=== PATIENT | female | born 1930 | race Caucasian/White ===

== ENCOUNTER → 2016-09-29 | Outpatient (CLI) | payer OTHER ==
[~2016-09-29] MED LIST: ACET-1256 PO; CALC500C70 PO; CEFU1TAB35 PO; CHOL1000 PO; IBAN150T PO; LEVO50TA6 PO; MULT-506 PO; PSEU30TA20 PO; RALO60TA12 PO
[2016-09-29 11:07] LABS: BASO % 0.4 %; BASO ABS # 0.03 K/uL (0-0.2); COMPLETE YES; EOS % 0.8 %; HEMATOCRIT 35.7 % (37-47); IG% 0.1 %; LYMPH % 27.1 %; LYMPH ABS # 2.08 K/uL (1.2-3.4); MEAN CELL VOLUME 92.2 fL (80-100); MEAN CORPUSCULAR HEMOGLOBIN 29.5 pg (25-34); MEAN CORPUSCULAR HGB CONC 31.9 g/dl (32-36); MEAN PLATELET VOLUME 8.1 fL (7.4-10.4); MONO % 9.1 %; NEUT % 62.5 %; PLATELET COUNT 343 K/uL (130-400); RED BLOOD COUNT 3.87 M/uL (4.2-5.4); WHITE BLOOD COUNT 7.68 K/uL (4.8-10.8)
--- NOTE | 2016-09-29 11:34 | DIAGNOSTIC IMAGING REPORT ---
ULTRASOUND OF THE CAROTID ARTERIES CLINICAL HISTORY: Right carotid bruit COMPARISON STUDY: None. TECHNIQUE: Real-time, grayscale, and color Doppler sonography of the carotid arteries was performed. Imaging reviewed in the transverse and longitudinal planes. NASCET criteria was utilized for stenosis calcification. FINDINGS: There is mild to moderate atherosclerotic plaque present . The peak systolic velocity within the right internal carotid artery is 100 cm/sec. The systolic velocity ratio of right internal to common carotid artery is 1.4. The peak systolic velocity within the left internal carotid artery is 78 cm/sec. The systolic velocity ratio left internal to common carotid artery is 0.9. Antegrade flow is seen in the vertebral arteries. The external carotid arteries are patent. Blood pressure in the right arm measured 137 mm/Hg. Blood pressure in the left arm measured 152 mm/Hg. IMPRESSION: Mild to moderate atheromatous changes. No evidence of incidentally significant carotid stenosis. Electronically signed by: Isacc Ag M.D. 09/29/2016 11:32 AM Dictated Date/Time: 09/29/2016 11:31 AM
[2016-09-29 11:42] LABS: ALT/SGPT 18 U/L (12-78); AST/SGOT 16 U/L (15-37); BLOOD UREA NITROGEN 22 mg/dl (7-18); BUN/CREATININE RATIO 24.4 (10-20); CALCIUM 8.8 mg/dl (8.5-10.1); CARBON DIOXIDE 23 mmol/L (21-32); CHLORIDE 113 mmol/L (98-107); CHOLESTEROL 145 mg/dl (0-200); GLUCOSE 81 mg/dl (70-99); POTASSIUM 3.4 mmol/L (3.5-5.1); SODIUM 141 mmol/L (136-145); TRIGLYCERIDES 122 mg/dl (0-150); VERY LOW DENSITY LIPOPROT CALC 24 mg/dl
[2016-09-29 11:53] LABS: ALB/GLOB RATIO 1.1 (0.9-2); ALKALINE PHOSPHATASE 45 U/L (45-117); CHOLESTEROL/HDL RATIO 4.5; HDL CHOLESTEROL 32 mg/dl; LDL CHOLESTEROL CALCULATED 89 mg/dl
== END | disposition home or self-care (01) ==
LOC: C.ULTR 09:52
PROVIDERS: ATTEND Family Medicine
DX: R63.4 Abnormal weight loss (principal); R53.83 Other fatigue; I10 Essential (primary) hypertension; E78.2 Mixed hyperlipidemia; E03.9 Hypothyroidism, unspecified; I65.23 Occlusion and stenosis of bilateral carotid arteries

== ENCOUNTER → 2016-12-22 | Outpatient (CLI) | payer OTHER ==
--- NOTE | 2016-12-22 14:49 | DIAGNOSTIC IMAGING REPORT ---
BILATERAL CAROTID DOPPLER STUDY HISTORY: Dizziness, subclavian STEAL COMPARISON: Carotid Doppler 09/29/2016. TECHNIQUE: Real-time, grayscale, and color Doppler sonography of the carotid arteries was performed. Imaging reviewed in the transverse and longitudinal planes. All measurements were calculated based on NASCET criteria. FINDINGS: Antegrade flow is seen in the bilateral vertebral arteries. The brachial pressures are hemodynamically similar. Mild calcified plaque within the bilateral carotid bifurcations. The peak systolic velocity within the right ICA is 83 cm/s. The right systolic ratio is 1.4. The peak systolic velocity within the left ICA is 103 cm/s. The left systolic ratio is 1.2. IMPRESSION: No hemodynamically significant stenosis seen within the carotid arteries. Electronically signed by: Enzo Macdonald M.D. 12/22/2016 2:47 PM Dictated Date/Time: 12/22/2016 2:46 PM
== END | disposition home or self-care (01) ==
LOC: C.ULTR 13:07
PROVIDERS: ATTEND Internal Medicine Interventional Cardiology
DX: G45.8 Other transient cerebral ischemic attacks and related syndromes (principal); R42 Dizziness and giddiness; I65.23 Occlusion and stenosis of bilateral carotid arteries

== ENCOUNTER → 2016-12-26 | Outpatient (CLI) | payer OTHER ==
[2016-12-26 12:50] LABS: BLOOD UREA NITROGEN 16 mg/dl (7-18); BUN/CREATININE RATIO 17.7 (10-20); CALCIUM 8.3 mg/dl (8.5-10.1); CARBON DIOXIDE 24 mmol/L (21-32); CHLORIDE 109 mmol/L (98-107); CREATININE 0.88 mg/dl (0.60-1.20); GLUCOSE 82 mg/dl (70-99); POTASSIUM 4.1 mmol/L (3.5-5.1); SODIUM 141 mmol/L (136-145)
== END | disposition home or self-care (01) ==
LOC: C.LABBFT 09:22
PROVIDERS: ATTEND Physician Assistant
DX: R06.02 Shortness of breath (principal)

== ENCOUNTER → 2016-12-29 | Outpatient (CLI) | payer OTHER ==
[2016-12-29 15:43] LABS: MEAN CELL VOLUME 92.9 fL (80-100); MEAN CORPUSCULAR HEMOGLOBIN 29.2 pg (25-34); MEAN CORPUSCULAR HGB CONC 31.5 g/dl (32-36); MEAN PLATELET VOLUME 8.5 fL (7.4-10.4); PLATELET COUNT 383 K/uL (130-400); RED BLOOD COUNT 3.66 M/uL (4.2-5.4); WHITE BLOOD COUNT 9.31 K/uL (4.8-10.8)
[2016-12-29 15:56] LABS: PROTHROMBIN TIME (PATIENT) 10.2 SECONDS (9.0-12.0)
== END | disposition home or self-care (01) ==
LOC: C.LAB1850 14:35
PROVIDERS: ATTEND Physician Assistant
DX: I35.0 Nonrheumatic aortic (valve) stenosis (principal)

== ENCOUNTER → 2017-02-20 | Outpatient (CLI) | payer OTHER ==
[~2017-02-20] MED LIST changes: -ACET-1256 PO; +ASPEC81 PO; +ATOR-22 PO; -CALC500C70 PO; -CEFU1TAB35 PO; +FURO-85 PO; +IBUP200C14; +IMDSR30 PO; -MULT-506 PO; +POTA10CA28 PO; -RALO60TA12 PO; +RALO60TA30 PO; +SERT25TA PO
[2017-02-20 17:42] LABS: MEAN CELL VOLUME 95.4 fL (80-100); MEAN CORPUSCULAR HEMOGLOBIN 30.2 pg (25-34); MEAN CORPUSCULAR HGB CONC 31.6 g/dl (32-36); MEAN PLATELET VOLUME 8.5 fL (7.4-10.4); PLATELET COUNT 358 K/uL (130-400); RED BLOOD COUNT 3.25 M/uL (4.2-5.4); WHITE BLOOD COUNT 9.52 K/uL (4.8-10.8)
[2017-02-20 17:51] LABS: BLOOD UREA NITROGEN 24 mg/dl (7-18); BUN/CREATININE RATIO 26.8 (10-20); CALCIUM 8.4 mg/dl (8.5-10.1); CARBON DIOXIDE 26 mmol/L (21-32); CHLORIDE 107 mmol/L (98-107); CREATININE 0.89 mg/dl (0.60-1.20); GLUCOSE 83 mg/dl (70-99); POTASSIUM 4.1 mmol/L (3.5-5.1); SODIUM 139 mmol/L (136-145)
[2017-02-20 17:54] LABS: ALT/SGPT 15 U/L (12-78); AST/SGOT 15 U/L (15-37)
== END | disposition home or self-care (01) ==
LOC: C.LABBFT 11:26
PROVIDERS: ATTEND Family Medicine
DX: D64.9 Anemia, unspecified (principal); E87.6 Hypokalemia; I11.0 Hypertensive heart disease with heart failure; I50.9 Heart failure, unspecified; E03.9 Hypothyroidism, unspecified; I25.10 Atherosclerotic heart disease of native coronary artery without angina pectoris

== ENCOUNTER → 2017-03-03 | Outpatient (CLI) | payer OTHER ==
[~2017-03-03] MED LIST changes: +ASPCH81X PO; -ASPEC81 PO; +ASPI-320 PO; +ATOR-54 PO; +CHOL20005 PO; +ISR/30 PO; +OPTIRAY 320 IV PRN; +PSEU30TA64 PO
--- NOTE | 2017-03-03 12:43 | DIAGNOSTIC IMAGING REPORT ---
ABDOMEN AND PELVIS CT WITH IV AND ORAL CONTRAST CT DOSE: 254.88 mGy.cm HISTORY: Acute generalized abdominal pain, most pronounced in the left with weight loss. WEIGHT LOSS,AB PAIN TECHNIQUE: Multiaxial CT images of the abdomen and pelvis were performed following the use of intravenous and oral contrast. A dose lowering technique was utilized adhering to the principles of ALARA. COMPARISON STUDY: None. FINDINGS: Lung bases are generally clear. There is no pneumatosis or pneumoperitoneum identified. Extensive coronary arterial calcifications are noted in addition to calcifications of the mitral and aortic annuli. No pericardial effusion. The liver, gallbladder and adrenal glands are within normal limits. Mild diffuse pancreatic atrophy. Low attenuating lesion of the posterior aspect spleen measures 6 x 5 mm, indeterminate however statistically benign. The spleen is mildly diminutive in size measuring 7 cm in length. Mild cortical thinning of the left kidney. No renal calculi or hydronephrosis identified. Urinary bladder is partially collapsed. Uterus appears to be surgically absent. Surgical clips are seen anterior to the urinary bladder posterior to the pubic symphysis. Moderate atherosclerosis with tortuosity of the abdominal aorta. No aneurysm or dissection identified. Nonspecific mildly prominent periportal lymph node is seen on image 113 series 3, 1.7 x 0.8 cm which is likely physiologic. No bulky retroperitoneal adenopathy. There is no bowel obstruction. There is moderate gaseous distention with moderate stool volume throughout the colon which is very tortuous. The cecum is noted within the right lower quadrant of the abdomen. The appendix is not clearly seen. No secondary signs of acute appendicitis. No ascites or significant inflammatory change throughout the abdomen or pelvis. Calcific granulomas are noted within the renal soft tissues. The bones appear osteoporotic. Levoscoliosis of the lumbar spine. 9 mm anterolisthesis L4 on L5, likely secondary to long-standing facet disease. Severe intervertebral disc space narrowing seen at T9-T10 and T10-T11 and. Mild age-indeterminate anterior wedging of T11 without retropulsion, likely chronic. IMPRESSION: 1. Mild gaseous distention of the colon is noted with moderate stool volume suggesting constipation, possibly with colonic ileus. No evidence of bowel obstruction or focal bowel wall thickening. 2. Prior hysterectomy. 3. 6 x 5 mm low attenuating lesion of the spleen is indeterminate, however statistically benign. 4. Additional findings as above. Electronically signed by: Sathya Newman M.D. 03/03/2017 12:41 PM Dictated Date/Time: 03/03/2017 12:30 PM
== END | disposition home or self-care (01) ==
LOC: C.CTS 10:07
PROVIDERS: ATTEND Family Medicine
DX: R63.4 Abnormal weight loss (principal); D64.9 Anemia, unspecified; R10.814 Left lower quadrant abdominal tenderness; Z90.710 Acquired absence of both cervix and uterus

== ENCOUNTER 2017-03-29 14:18 | Inpatient (IN) | payer OTHER ==
[~2017-03-29] VITALS: Ht 157.5 cm; Wt 55.2 kg
[~2017-03-29 14:18] MED LIST changes: -ASPIRIN 81 MG CHEW PO ONE; -NITROGLYCERIN 0.3 MG/1 TAB 100 TAB BTL SL ONE; -NITROGLYCERIN 0.4 MG SL PER TAB CHARGE ONE; -SODIUM CHLORIDE 0.9% 500ML 500 ML IV ONE
[2017-03-29] MEDS ORDERED: NITROGLYCERIN 0.4 MG SL PER TAB CHARGE SL STA (14:46)
--- NOTE | 2017-03-29 15:03 | EMERGENCY ROOM VISIT NOTE ---
History Report prepared by Austyn: Nikita Hope Under the Supervision of: Dr. Truong Avila M.D. First contact with patient: 14:37 Chief Complaint: CHEST PAIN Stated Complaint: CHEST PAIN Nursing Triage Summary: Pt arrives by litter from [facility]. Had Colonoscopy today for anemia, rectal bleeding and weight loss. Pt started to complain of chest pain post recovery. Pt reported it was a substernal pressure. They placed pt on 4L NC, gave 324 ASA at 1326, 0.4 Nitro SL at 1348. pt rating pain 2/10. Hx of heart murmur, blockage and stenosis. reports colonoscopy was clear other than Diverticultis and hemmorrhoids History of Present Illness The patient is an 86 year old female who presents to the Emergency Room with complaints of chest pressure x 2 hours. Patient's chest pressure has been ongoing for approximately 2 hours. Patient did have a recent colonoscopy which showed some diverticula and some hemorrhoids. This was not any sort of bleeding. She does complain shortness of breath which is chronic in nature. Patient does have a prior history of blood clots however this is many many years ago. Patient does take aspirin but no Plavix. Of note the patient did have a recent heart catheterization back in January with Dr. Julian Ta which showed 70% stenosis of the LAD at the midportion. They elected medical management at this time. Patient states that she did get a full dose aspirin as well as nitroglycerin. The nitroglycerin did mildly improve her pain. Patient denies any other infectious symptoms or lower extremity swelling. Patient denies any orthopnea. Source of History: patient Onset: 2 hour WALLPAPERER Position: chest Quality: pressure Modifying Factors (Relieving): other ( Nitro) Associated Symptoms: + SOB Review of Systems See HPI for pertinent positives and negatives. A total of ten systems were reviewed and were otherwise negative. Past Medical & Surgical Medical Problems: (1) Aortic stenosis (2) Arthritis (3) Benign essential HTN (4) Bladder CA (5) CAD (coronary artery disease) (6) Hypothyroidism (7) Osteoporosis (8) S/P bladder tumor removal Surgical Problems: (1) History of hysterectomy Family History Omitted due to age Social History Smoking Status: Never Smoker Alcohol Use: none Drug Use: none Marital Status: Housing Status: lives with family Occupation Status: retired Current/Historical Medications Scheduled Aspirin (Aspirin Chewable), 81 MG PO QAM Atorvastatin (Lipitor), 20 MG PO QAM Cholecalciferol (Vitamin D3), 2,000 UNITS PO QAM Furosemide (Lasix), 20 MG PO QAM Isosorbide Dinitrate (Isordil), 30 MG PO QAM Levothyroxine Sodium (Levothyroxine Sodium), 50 MCG PO QAM Potassium Chloride (Micro-K Ext Rel), 10 MEQ PO QAM Raloxifene Hcl (Evista), 60 MG PO QAM Sertraline (Zoloft), 25 MG PO QAM Scheduled PRN Pseudoephedrine Hcl (Sudafed), 30 MG PO DAILY PRN for SINUS PRESSURE Allergies Coded Allergies: No Known Allergies (Unverified , 03/29/17) Physical Exam Vital Signs Date Time Temp Pulse Resp B/P (MAP) Pulse Ox O2 Delivery O2 Flow Rate FiO2 03/29/17 16:00 62 18 127/55 97 Room Air 03/29/17 14:26 64 03/29/17 14:25 100 Nasal Cannula 3.0 03/29/17 14:25 100 Nasal Cannula 3.0 03/29/17 14:25 37.1 66 12 150/59 100 Nasal Cannula 3.0 Physical Exam GENERAL: Awake, alert, well-appearing, NAD HENT: Normocephalic, atraumatic. NC in place EYES: Normal conjunctiva. Sclera non-icteric. NECK: Supple. No nuchal rigidity. FROM. RESPIRATORY: CTAB, no rhonchi, wheezing, crackles CARDIAC: RRR, no MRG ABDOMEN: Soft, NTND, BS+ MSK: No chest wall TTP, no LE edema, no reproducible chest wall TTP NEURO: GCS 15, CN 2-12 intact, moves all 4s on command SKIN: No rash or jaundice noted. Medical Decision & Procedures ER Provider Diagnostic Interpretation: Radiology results as stated below per my review and radiologist interpretation: CHEST ONE VIEW PORTABLE HISTORY: 86 years-old Female CHEST PAIN acute atypical chest pain COMPARISON: Chest radiograph 10/01/2015, CT chest 10/13/2015 CT abdomen and pelvis 03/03/2017 TECHNIQUE: Portable AP view of the chest FINDINGS: Catheter granuloma of the right lower lobe redemonstrated. Cardiac silhouette is mildly enlarged. There is no pneumothorax, pleural effusion, overt pulmonary edema. No definite focal airspace consolidation. There are calcifications of the tracheobronchial tree. Mild convex right curvature of the lower thoracic spine. Chondrocalcinosis seen about the right shoulder. There are degenerative changes noted within the shoulders and spine. IMPRESSION: Prior granulomatous disease without acute process. The above report was generated using voice recognition software. It may contain grammatical, syntax or spelling errors. Electronically signed by: Sathya Newman M.D. 03/29/2017 3:01 PM Dictated Date/Time: 03/29/2017 2:59 PM Laboratory Results 03/29/17 15:16 Red Blood Count 3.04, Mean Corpuscular Volume 93.4, Mean Corpuscular Hemoglobin 29.6, Mean Corpuscular Hemoglobin Concent 31.7, Mean Platelet Volume 8.3, Neutrophils (%) (Auto) 54.1, Lymphocytes (%) (Auto) 33.3, Monocytes (%) (Auto) 10.7, Eosinophils (%) (Auto) 1.4, Basophils (%) (Auto) 0.4, Neutrophils # (Auto ) 3.82, Lymphocytes # (Auto) 2.36, Monocytes # (Auto) 0.76, Eosinophils # (Auto ) 0.10, Basophils # (Auto) 0.03 03/29/17 15:16 Test 03/29/17 15:16 White Blood Count 7.08 K/uL (4.8-10.8) Red Blood Count 3.04 M/uL (4.2-5.4) Hemoglobin 9.0 g/dL (12.0-16.0) Hematocrit 28.4 % (37-47) Mean Corpuscular Volume 93.4 fL (80-100) Mean Corpuscular Hemoglobin 29.6 pg (25-34) Mean Corpuscular Hemoglobin Concent 31.7 g/dl (32-36) Platelet Count 297 K/uL (130-400) Mean Platelet Volume 8.3 fL (7.4-10.4) Neutrophils (%) (Auto) 54.1 % Lymphocytes (%) (Auto) 33.3 % Monocytes (%) (Auto) 10.7 % Eosinophils (%) (Auto) 1.4 % Basophils (%) (Auto) 0.4 % Neutrophils # (Auto) 3.82 K/uL (1.4-6.5) Lymphocytes # (Auto) 2.36 K/uL (1.2-3.4) Monocytes # (Auto) 0.76 K/uL (0.11-0.59) Eosinophils # (Auto) 0.10 K/uL (0-0.5) Basophils # (Auto) 0.03 K/uL (0-0.2) RDW Standard Deviation 47.0 fL (36.4-46.3) RDW Coefficient of Variation 13.7 % (11.5-14.5) Immature Granulocyte % (Auto) 0.1 % Immature Granulocyte # (Auto) 0.01 K/uL (0.00-0.02) Prothrombin Time 10.7 SECONDS (9.0-12.0) Prothromb Time International Ratio 1.0 (0.9-1.1) Activated Partial Thromboplast Time 24.4 SECONDS (21.0-31.0) Partial Thromboplastin Ratio 0.9 Anion Gap 6.0 mmol/L (3-11) Est Creatinine Clear Calc Drug Dose 54.2 ml/min Estimated GFR () 96.3 Estimated GFR (Non- 83.1 BUN/Creatinine Ratio 21.0 (10-20) Calcium Level 7.8 mg/dl (8.5-10.1) Phosphorus Level 2.5 mg/dl (2.5-4.9) Magnesium Level 1.7 mg/dl (1.8-2.4) Total Bilirubin 0.2 mg/dl (0.2-1) Direct Bilirubin < 0.1 mg/dl (0-0.2) Aspartate Amino Transf (AST/SGOT) 13 U/L (15-37) Alanine Aminotransferase (ALT/SGPT) 14 U/L (12-78) Alkaline Phosphatase 40 U/L (45-117) Total Protein 6.0 gm/dl (6.4-8.2) Albumin 3.1 gm/dl (3.4-5.0) Lipase 207 U/L (73-393) Laboratory results reviewed by me Medications Administered Medications (Trade) Dose Ordered Sig/Cruz Route Start Time Stop Time Status Last Admin Dose Admin Nitroglycerin (Nitrostat Tab) 0.4 mg NOW STAT SL 03/29/17 14:46 03/29/17 14:48 DC 03/29/17 15:12 0.4 MG Magnesium Oxide (Mag-Ox Tab) 800 mg ONE STAT PO 03/29/17 15:55 03/29/17 16:07 DC 03/29/17 16:26 800 MG ECG Indication: chest pain Rate (beats per minute): 68 Rhythm: sinus rhythm, other (with first-degree AV block) Findings: 1st degree AV block, T-wave inversion (lead 3) Comparison ECG Date: Jan 2015; a slight progression of the T wave inversion in lead 3 but no other changes identified Change: Normal axis, TWI in lead 3 no other overt STS changes or TWI ED Course 1437: The patient was evaluated in room A10. A complete history and physical exam was performed. 1601: I discussed the case with Dr. Omkar Berrios [facility] Hospitalist, he will evaluate the patient for further treatment. Medical Decision The patient is an 86 year old female who presents to the Emergency Room with complaints of chest pressure x 2 hours. Prior records/ancillary studies reviewed. Triage Nursing notes reviewed. Additional history obtained from []. The patient's history was concerning for chest pain. Differential diagnosis: Etiologies such as cardiac ischemia, aortic dissection, pulmonary embolism, pneumonia, pneumothorax, musculoskeletal, infections, pericarditis, myocarditis , esophageal rupture, gastrointestinal, as well as others were entertained. Patient was seen and evaluated the bedside. Patient admitted complaining some mild chest pressure that was central nonradiating without any diaphoresis, nausea, vomiting. No exertional symptoms, orthopnea or infectious symptoms. Patient did have blood work, EKG, troponin, chest x-ray. Patient's EKG did show a single isolated TWI in lead 3 that is fairly unchanged from priors. No other overt changes. Patient does have first degree AV block. Of note the patient did note some mild improvement in her discomfort with nitroglycerin. She did receive full dose aspirin after her colonoscopy. Patient's chest x-ray normal. Patient's blood work did show hypomagnesemia and type of calcium you. These were repleted. Given the patient's recent cardiac catheterization with mid LAD stenosis 70% without any stents patient does have known CAD and given her chest pain she is high risk. She was given a second dose of nitroglycerin which she stated did not show much help. Given the patient's high risk chest pain, I did talk with the medicine service who agreed to further evaluate and treat the patient. Medication Reconcilliation Current Medication List: was personally reviewed by me Blood Pressure Screening Patient's blood pressure: Elevated blood pressure Blood pressure disposition: Referred to PCP Consults Time Called: 1550 Consulting Physician: Dr. Omkar JUDD Hospitalist Returned Call: 1601 I discussed the case with Dr. Omkar JUDD Hospitalist, he will evaluate the patient for further treatment. Impression Primary Impression: Chest pain Additional Impressions: Chest pressure Hypomagnesemia Hypocalcemia Scribe Attestation The scribe's documentation has been prepared under my direction and personally reviewed by me in its entirety. I confirm that the note above accurately reflects all work, treatment, procedures, and medical decision making performed by me. Departure Information Dispostion Being Evaluated By Hospitalist Referrals Kenn Driver M.D. (PCP) Patient Instructions My [facility] Problem Qualifiers Primary Impression: Chest pain Chest pain type: unspecified Qualified Codes: R07.9 - Chest pain, unspecified
[2017-03-29 15:30] LABS: BASO % 0.4 %; BASO ABS # 0.03 K/uL (0-0.2); EOS % 1.4 %; HEMATOCRIT 28.4 % (37-47); IG# 0.01 K/uL (0.00-0.02); LYMPH % 33.3 %; LYMPH ABS # 2.36 K/uL (1.2-3.4); MEAN CELL VOLUME 93.4 fL (80-100); MEAN CORPUSCULAR HEMOGLOBIN 29.6 pg (25-34); MEAN CORPUSCULAR HGB CONC 31.7 g/dl (32-36); MEAN PLATELET VOLUME 8.3 fL (7.4-10.4); MONO % 10.7 %; MONO ABS # 0.76 K/uL (0.11-0.59); NEUT % 54.1 %; NEUT ABS # 3.82 K/uL (1.4-6.5); PLATELET COUNT 297 K/uL (130-400); RED CELL DISTRIBUTION WIDTH CV 13.7 % (11.5-14.5); WHITE BLOOD COUNT 7.08 K/uL (4.8-10.8)
[2017-03-29 15:41] LABS: PTT PATIENT 24.4 SECONDS (21.0-31.0)
[2017-03-29 15:49] LABS: ALBUMIN 3.1 gm/dl (3.4-5.0); ALT/SGPT 14 U/L (12-78); AST/SGOT 13 U/L (15-37); BLOOD UREA NITROGEN 13 mg/dl (7-18); CALCIUM 7.8 mg/dl (8.5-10.1); CARBON DIOXIDE 26 mmol/L (21-32); GLUCOSE 85 mg/dl (70-99); LIPASE 207 U/L (73-393); POTASSIUM 3.7 mmol/L (3.5-5.1); SODIUM 140 mmol/L (136-145)
[2017-03-29 15:52] LABS: ALKALINE PHOSPHATASE 40 U/L (45-117); PHOSPHORUS 2.5 mg/dl (2.5-4.9)
[2017-03-29] MEDS ORDERED: CALCIUM GLUCONATE 10% 10 ML VIAL IV STA (15:52)
[2017-03-29] MEDS ORDERED: MAGNESIUM OXIDE 400 MG TAB PO STA (15:55)
[2017-03-29] MEDS ORDERED: MAGNESIUM HYDROXIDE SUSP 30 ML UDC PO PRN (16:15)
[2017-03-29] MEDS ORDERED: POLYETHYLENE (MIRALAX) 17 GM PACK PO PRN (16:15)
[2017-03-29] MEDS ORDERED: ONDANSETRON INJ 2 MG/ML 2 ML VIAL IV PRN (16:15)
[2017-03-29] MEDS ORDERED: ACETAMINOPHEN 325 MG TAB PO PRN (16:15)
[2017-03-29] MEDS ORDERED: CALCIUM GLUCONATE 10% 1,000 MG in SODIUM CHLORIDE 0.9% 50ML 50 ML IV SCH (16:15)
[2017-03-29] MEDS ORDERED: PSEUDOEPHEDRINE HCL 30 MG TAB PO PRN (16:15)
--- NOTE | 2017-03-29 16:56 | History and Physical ---
History & Physical Date & Time of Service: Mar 29, 2017 at 16:31 Chief Complaint: Chest Pain Primary Care Physician: Kenn Driver M.D. History of Present Illness Source: patient, family This is an 86 yo F with PMHx of HTN, CAD with 70 % stenosis to the LAD, aortic stenosis/insufficiency, hypothyroidism, anemia of chronic disease, osteoporosis , who presents status post colonoscopy completed this morning by Dr. solorio. At the end of the procedure the patient noted to have substernal pressure, and therefore was sent over the ER for evaluation. At this point in time she denies any chest pain, shortness of breath, lightheadedness, headache and reports she is only mildly bloated secondary to colonoscopy. She has reproducible pain which is only rated as a 1-2 out of 10 when I press over her left anterior chest. She reports that she is fairly physically active at home, ambulates without any assistive devices and does not require supplemental O2. Here in the ER an EKG was completed showing T-wave inversions in leads 3, however is comparable to previous EKG. Initial troponin is negative, Mag= 1.7 and has been replaced via PO meds in the ER. Past Medical/Surgical History Medical Problems: (1) Aortic stenosis (2) Arthritis (3) Benign essential HTN (4) Bladder CA (5) CAD (coronary artery disease) (6) Hypothyroidism (7) Osteoporosis Surgical Problems: (1) History of hysterectomy (2) S/P bladder tumor removal Family History Omitted due to age Social History Smoking Status: Never Smoker Smokeless Tobacco Use: No Alcohol Use: none Drug Use: none Marital Status: Housing status: lives with family Occupational Status: retired Allergies Coded Allergies: No Known Allergies (Unverified , 03/29/17) Home Medications Scheduled Aspirin (Aspirin Chewable), 81 MG PO QAM Atorvastatin (Lipitor), 20 MG PO QAM Cholecalciferol (Vitamin D3), 2,000 UNITS PO QAM Furosemide (Lasix), 20 MG PO QAM Isosorbide Dinitrate (Isordil), 30 MG PO QAM Levothyroxine Sodium (Levothyroxine Sodium), 50 MCG PO QAM Potassium Chloride (Micro-K Ext Rel), 10 MEQ PO QAM Raloxifene Hcl (Evista), 60 MG PO QAM Sertraline (Zoloft), 25 MG PO QAM Scheduled PRN Pseudoephedrine Hcl (Sudafed), 30 MG PO DAILY PRN for SINUS PRESSURE Review of Systems Constitutional: No fever, sweats or chills, + weight loss of 10 pounds since December Eyes: No diplopia, no worsening or blurred vision ENT: normal hearing, no trouble swallowing Respiratory: No cough, sputum, dyspnea at rest or on exertion Cardiovascular: See history of present illness Abdomen: No pain, nausea, vomiting, diarrhea or constipation Musculoskeletal: No joint pain, calf pain, swelling Neurologic: No weakness, numbness/tingling, or balance problems Psychiatric: No anxiety or depression Skin: No rash or itch Physical Exam Vital Signs Date Time Temp Pulse Resp B/P (MAP) Pulse Ox O2 Delivery O2 Flow Rate FiO2 03/29/17 16:00 62 18 127/55 97 Room Air 03/29/17 14:26 64 03/29/17 14:25 100 Nasal Cannula 3.0 03/29/17 14:25 100 Nasal Cannula 3.0 03/29/17 14:25 37.1 66 12 150/59 100 Nasal Cannula 3.0 General: awake, alert, no apparent distress, + thin and frail Head: Normocephalic, atraumatic ENT: PERRL, EOMI, no pharyngeal exudate, mucous membranes moist Chest: Clear to auscultation, on room air, no adventitious breath sounds Cardiac: + Tenderness with palpation over the left chest wall, Regular rate and rhythm, loud +systolic murmur grade III/, no JVD, normal peripheral pulses, good capillary refill Abdominal: NABS x 4 quadrants, soft, nontender to palpation, no rebound, guarding or tenderness Extremities: Normal inspection, no peripheral edema or erythema, calfs nontender to palpation Psych: Normal mood and affect Neuro: AAO x 3, strength intact bilaterally and related 5/5, no motor deficits, speech is clear, no peripheral sensory deficits Diagnostics Laboratory Results Results Past 24 Hours Test 03/29/17 15:16 Range/Units White Blood Count 7.08 4.8-10.8 K/uL Red Blood Count 3.04 4.2-5.4 M/uL Hemoglobin 9.0 12.0-16.0 g/dL Hematocrit 28.4 37-47 % Mean Corpuscular Volume 93.4 80-100 fL Mean Corpuscular Hemoglobin 29.6 25-34 pg Mean Corpuscular Hemoglobin Concent 31.7 32-36 g/dl Platelet Count 297 130-400 K/uL Mean Platelet Volume 8.3 7.4-10.4 fL Neutrophils (%) (Auto) 54.1 % Lymphocytes (%) (Auto) 33.3 % Monocytes (%) (Auto) 10.7 % Eosinophils (%) (Auto) 1.4 % Basophils (%) (Auto) 0.4 % Neutrophils # (Auto) 3.82 1.4-6.5 K/uL Lymphocytes # (Auto) 2.36 1.2-3.4 K/uL Monocytes # (Auto) 0.76 0.11-0.59 K/uL Eosinophils # (Auto) 0.10 0-0.5 K/uL Basophils # (Auto) 0.03 0-0.2 K/uL RDW Standard Deviation 47.0 36.4-46.3 fL RDW Coefficient of Variation 13.7 11.5-14.5 % Immature Granulocyte % (Auto) 0.1 % Immature Granulocyte # (Auto) 0.01 0.00-0.02 K/uL Prothrombin Time 10.7 9.0-12.0 SECONDS Prothromb Time International Ratio 1.0 0.9-1.1 Activated Partial Thromboplast Time 24.4 21.0-31.0 SECONDS Partial Thromboplastin Ratio 0.9 Sodium Level 140 136-145 mmol/L Potassium Level 3.7 3.5-5.1 mmol/L Chloride Level 108 98-107 mmol/L Carbon Dioxide Level 26 21-32 mmol/L Anion Gap 6.0 3-11 mmol/L Blood Urea Nitrogen 13 7-18 mg/dl Creatinine 0.60 0.60-1.20 mg/dl Est Creatinine Clear Calc Drug Dose 54.2 ml/min Estimated GFR () 96.3 Estimated GFR (Non- 83.1 BUN/Creatinine Ratio 21.0 10-20 Random Glucose 85 70-99 mg/dl Calcium Level 7.8 8.5-10.1 mg/dl Phosphorus Level 2.5 2.5-4.9 mg/dl Magnesium Level 1.7 1.8-2.4 mg/dl Total Bilirubin 0.2 0.2-1 mg/dl Direct Bilirubin < 0.1 0-0.2 mg/dl Aspartate Amino Transf (AST/SGOT) 13 15-37 U/L Alanine Aminotransferase (ALT/SGPT) 14 12-78 U/L Alkaline Phosphatase 40 45-117 U/L Troponin I < 0.015 0-0.045 ng/ml Total Protein 6.0 6.4-8.2 gm/dl Albumin 3.1 3.4-5.0 gm/dl Lipase 207 73-393 U/L Diagnostic Radiology CHEST ONE VIEW PORTABLE HISTORY: 86 years-old Female CHEST PAIN acute atypical chest pain COMPARISON: Chest radiograph 10/01/2015, CT chest 10/13/2015 CT abdomen and pelvis 03/03/2017 TECHNIQUE: Portable AP view of the chest FINDINGS: Catheter granuloma of the right lower lobe redemonstrated. Cardiac silhouette is mildly enlarged. There is no pneumothorax, pleural effusion, overt pulmonary edema. No definite focal airspace consolidation. There are calcifications of the tracheobronchial tree. Mild convex right curvature of the lower thoracic spine. Chondrocalcinosis seen about the right shoulder. There are degenerative changes noted within the shoulders and spine. IMPRESSION: Prior granulomatous disease without acute process. The above report was generated using voice recognition software. It may contain grammatical, syntax or spelling errors. Electronically signed by: Sathya Newman M.D. 03/29/2017 3:01 PM Dictated Date/Time: 03/29/2017 2:59 PM The status of this report is Signed. Impression Assessment and Plan This is an 86 yo F with PMHx of HTN, CAD with 70 % stenosis to the LAD, aortic stenosis/insufficiency, hypothyroidism, anemia of chronic disease, osteoporosis , who presents status post colonoscopy completed this morning by Dr. solorio. At the end of the procedure the patient noted to have substernal pressure, and therefore was sent over the ER for evaluation. Chest pressure CAD witih 70% stenosis to the LAD completed 01/13/17 HTN HLD Aortic stenosis, aortic regurgitation, mitral regurg - Admit to telemetry for observation s/p colonoscopy - Initial troponin was negative, will trend 2 more sets - Last echocardiogram done in January, no need to repeat at this time, last carotid dopper on 12/22/16 without hemodynamically significant stenosis - no evidence of CHF per cardiology outpatient - Patient reports she is currently on medical management for CAD with stenosis and denies wants for invasive procedures or heroic measures. - Continue Imdur 30 mg daily, aspirin 81 mg daily, atorvastatin 20 mg daily - Continue Lasix 20 mg daily for lower extremity edema - which is well controlled Hypomagnesemia - Mag= 1.7, replaced via PO meds. Follow PRP Anemia of chronic disease - Colonoscopy completed today by Dr. solorio, only showing small mouth diverticula in the sigmoid colon, internal and external nonbleeding hemorrhoids. - Continue vitamins, patient cannot tolerate iron supplementation due to constipation iron supplementation History of bladder tumor s/p removal -stable Osteoporosis - Continue vitamin D supplementation Hypothyroidism Continue Synthroid 50 mcg daily DVT ppx: teds, scds, ambulatory CODE STATUS: DNR Disposition: Patient from home, lives with i personally examined pt and verified all martinez points karie Vasquez PAC CP after endo - better now. known CAD and aortic valve disease vitals noted nad breathing unlabored CP - likely GI. has CAD currently under med management. r/o ACS w enzymes, if negative then home and cardiology f/u Level of Care Telemetry Advanced Directives Existing Advance Directive: Yes Existing Living Will: Yes Existing Power of Senior Mechanical Design Engineer: Yes Resuscitation Status DO NOT RESUSCITATE VTE Prophylaxis VTE Risk Assessment Done? Y/N: Yes Risk Level: Moderate Given or contraindicated: T.E.D. Stockings, SCD's
[2017-03-29 18:48] VITALS: BP 144/61; PULSE 70; TEMP 36.9; O2SAT 96; Ht 157.5 cm; Wt 55.2 kg
[2017-03-29 19:45] VITALS: BP 120/63; PULSE 69; TEMP 37.2; O2SAT 93
[2017-03-29] MEDS: HEPARIN SOD 5000 UNIT/0.5 ML CARP SQ SCH (21:12)
[2017-03-29 23:06] VITALS: BP 118/67; PULSE 67; TEMP 36.6; O2SAT 96
[2017-03-30 03:52] VITALS: BP 105/59; PULSE 57; TEMP 36.6; O2SAT 96
[2017-03-30 05:03] LABS: BASO % 0.5 %; BASO ABS # 0.03 K/uL (0-0.2); EOS % 1.9 %; EOS ABS # 0.11 K/uL (0-0.5); HEMATOCRIT 28.2 % (37-47); HEMOGLOBIN 8.9 g/dL (12.0-16.0); IG# 0.02 K/uL (0.00-0.02); LYMPH % 34.6 %; LYMPH ABS # 1.97 K/uL (1.2-3.4); MEAN CELL VOLUME 94.6 fL (80-100); MEAN CORPUSCULAR HEMOGLOBIN 29.9 pg (25-34); MEAN CORPUSCULAR HGB CONC 31.6 g/dl (32-36); MEAN PLATELET VOLUME 8.3 fL (7.4-10.4); MONO % 11.2 %; MONO ABS # 0.64 K/uL (0.11-0.59); NEUT % 51.4 %; NEUT ABS # 2.93 K/uL (1.4-6.5); PLATELET COUNT 281 K/uL (130-400); RED CELL DISTRIBUTION WIDTH CV 13.6 % (11.5-14.5); RED CELL DISTRIBUTION WIDTH SD 46.9 fL (36.4-46.3)
[2017-03-30 05:19] LABS: CALCIUM 8.3 mg/dl (8.5-10.1); CREATININE 0.6 mg/dl (0.60-1.20); POTASSIUM 3.6 mmol/L (3.5-5.1)
[2017-03-30] MEDS ORDERED: LEVOTHYROXINE 50 MCG TAB PO SCH (06:00)
[2017-03-30 08:02] VITALS: BP 136/69; PULSE 54; TEMP 36.7; O2SAT 96
[2017-03-30] MEDS: HEPARIN SOD 5000 UNIT/0.5 ML CARP SQ SCH (08:20)
[2017-03-30] MEDS ORDERED: ISOSORBIDE MONONITRATE 30 MG TABCR PO SCH ×2 (09:00)
[2017-03-30] MEDS ORDERED: RALOXIFENE 60 MG TAB PO SCH (09:00)
[2017-03-30] MEDS ORDERED: ATORVASTATIN 20 MG TAB PO SCH (09:00)
[2017-03-30] MEDS ORDERED: CHOLECALCIFEROL 1000 INTER.UNIT TAB PO SCH (09:00)
[2017-03-30] MEDS ORDERED: ASPIRIN 81 MG ECTAB PO SCH (09:00)
[2017-03-30] MEDS ORDERED: SERTRALINE HCL 50 MG TAB PO SCH (09:00)
[2017-03-30] MEDS ORDERED: POTASSIUM CHLORIDE 10 MEQ TABCR PO SCH (09:00)
[2017-03-30] MEDS ORDERED: FUROSEMIDE 20 MG TAB PO SCH (09:00)
--- NOTE | 2017-03-30 09:47 | Discharge Instructions ---
Discharge Instructions Date of Service Mar 30, 2017. Admission Reason for Admission: Chest Pain Discharge Discharge Diagnosis / Problem: Chest Pain Discharge Goals Goal(s): Improve function, Increase independence Activity Recommendations Activity Limitations: resume your previous activity . Instructions / Follow-Up Instructions / Follow-Up Chest Pain: - You were monitored in the hospital and your cardiac enzymes obtained and negative. This does not appear to be an acute cardiac event. - This was likely some GI interference after having a colonoscopy, as well, this could have been aggravated from anesthesia - The reproducible pain in your upper chest appears that there was a musculoskeletal component and this could have been from the way you get positioned during a colonoscopy. - Continue your medical management for your heart disease and follow-up with your steel fixer for ongoing monitoring Reason to Return: - Please return if you develop further chest pain or get short of breath Please follow up with Dr. Kenn Driver on Monday, April 05, 2017 at 1:15pm. *If you need to reschedule this appointment please call the office at . Current Hospital Diet Patient's current hospital diet: AHA Diet (Heart Healthy) Discharge Diet Recommended Diet: AHA Diet (Heart Healthy) Pending Studies Studies pending at discharge: no Medical Emergencies . Who to Call and When: Medical Emergencies: If at any time you feel your situation is an emergency, please call 911 immediately. . Non-Emergent Contact Non-Emergency issues call your: Primary Care Provider Call Non-Emergent contact if: you have a fever, your pain is concerning you, you have any medication questions . . "Provider Documentation" section prepared by Candelaria Hazel. . VTE Core Measure Inpt VTE Proph given/why not?: Sam Tony, SCD's
[2017-03-30 11:10] VITALS: BP 118/71; PULSE 66; O2SAT 98
[2017-03-30 11:30] VITALS: BP 129/72; PULSE 81; TEMP 37.1; O2SAT 96
[2017-03-30 13:33] VITALS: BP 129/72; PULSE 81; TEMP 37.1; O2SAT 96
--- NOTE | 2017-03-30 14:35 | Discharge Summary ---
Discharge Summary Date of Service Mar 30, 2017. Discharge Summary Admission Date: Mar 29, 2017 at 16:09 Discharge Date: Mar 30, 2017 Discharge Disposition: Home Principal Diagnosis: Chest Pain Problems/Secondary Diagnoses: Medical Problems: (1) Aortic stenosis (2) Arthritis (3) Benign essential HTN (4) Bladder CA (5) CAD (coronary artery disease) (6) Hypothyroidism (7) Osteoporosis (8) S/P bladder tumor removal Surgical Problems: (1) History of hysterectomy Procedures: CHEST ONE VIEW PORTABLE FINDINGS: Catheter granuloma of the right lower lobe redemonstrated. Cardiac silhouette is mildly enlarged. There is no pneumothorax, pleural effusion, overt pulmonary edema. No definite focal airspace consolidation. There are calcifications of the tracheobronchial tree. Mild convex right curvature of the lower thoracic spine. Chondrocalcinosis seen about the right shoulder. There are degenerative changes noted within the shoulders and spine. IMPRESSION: Prior granulomatous disease without acute process. Consultations: 1. PT/OT Medication Reconciliation Continued Medications: Aspirin (Aspirin Chewable) 81 Mg Chew 81 MG PO QAM Atorvastatin (Lipitor) 20 Mg Tab 20 MG PO QAM, TAB Cholecalciferol (Vitamin D3) 2,000 Unit Tab 2000 UNITS PO QAM Furosemide (Lasix) 20 Mg Tab 20 MG PO QAM Isosorbide Dinitrate (Isordil) 30 Mg Tab 30 MG PO QAM, TAB Levothyroxine Sodium (Levothyroxine Sodium) 50 Mcg Tab 50 MCG PO QAM Potassium Chloride (Micro-K Ext Rel) 10 Meq Capcr 10 MEQ PO QAM, CAP Pseudoephedrine Hcl (Sudafed) 30 Mg Tab 30 MG PO DAILY PRN for SINUS PRESSURE, TAB Raloxifene Hcl (Evista) 60 Mg Tab 60 MG PO QAM, TAB Sertraline (Zoloft) 25 Mg Tab 25 MG PO QAM, TAB Discharge Exam Review of Systems: Constitutional: No fever, No chills Respiratory: No cough, No shortness of breath Cardiovascular: No chest pain, No palpitations Abdomen: No pain, No nausea, No vomiting, No diarrhea, No constipation Musculoskeletal: No swelling, No calf pain Genitourinary - Female: No dysuria Hematologic / Lymphatic: No abnormal bleeding/bruising Physical Exam: General Appearance: WD/WN, no apparent distress Eyes: sclerae normal ENT: hearing grossly normal Neck: supple, no JVD, trachea midline Respiratory/Chest: lungs clear, normal breath sounds, no respiratory distress, no accessory muscle use, + pertinent finding (No reproducible CP of the anterior chest wall) Cardiovascular: regular rate, rhythm, + systolic murmur Abdomen / GI: normal bowel sounds, non tender, soft Extremities: no pedal edema Neurologic/Psychiatric: alert, oriented x 3 Skin: normal color, warm/dry Hospital Course ADMISSION: This is an 86 yo F with PMHx of HTN, CAD with 70 % stenosis to the LAD, aortic stenosis/insufficiency, hypothyroidism, anemia of chronic disease, osteoporosis, who presents status post colonoscopy completed this morning by Dr. solorio. At the end of the procedure the patient noted to have substernal pressure, and therefore was sent over the ER for evaluation. At this point in time she denies any chest pain, shortness of breath, lightheadedness, headache and reports she is only mildly bloated secondary to colonoscopy. She has reproducible pain which is only rated as a 1-2 out of 10 when I press over her left anterior chest. She reports that she is fairly physically active at home, ambulates without any assistive devices and does not require supplemental O2. Here in the ER an EKG was completed showing T-wave inversions in leads 3, however is comparable to previous EKG. Initial troponin is negative, Mag= 1.7 and has been replaced via PO meds in the ER. HOSPITAL COURSE: Ms. Adams was admitted due to CP following Colonoscopy that likely has a GI component given anesthesia. Also had a reproducible component that is likely due to positioning during colonoscopy Chest Pain/Pressure: GI vs Musculoskeletal - Troponins obtained and remained negative during admission; chest pressure and reproducible L sided pain have been completely resolved - Telemetry monitoring revealed NSR with one episode of largely sinus tach with PACs but with a lot of artifact. This was for only a few beats and spontaneously resolved - Does have known CAD with 70% stenosis of LAD and has opted for medical management - Home medications will be continued as previously prescribed as no adjustments were made Anemia of Chronic Disease: STABLE - Colonoscopy did not reveal an explanation for her anemia PA Physician Supervision Note: I interviewed and examined the patient. Discussed with Candelaria Hazel PAC and agree with findings and plan as documented in the note. Any exceptions or clarifications are listed here: None This patient was observed overnight after developing chest pain after a colonoscopy. She does have a history of aortic valve disease and coronary artery disease however she had no recurrent pain enzyme trend her EKG changes Her vital signs are stable she seen in the presence of her family her heart is regular with a loud systolic murmur her lungs are clear her abdomen is benign Chest pain postoperatively which is resolved patient will return to home resuming her home medications and following up with her outpatient physician Documented By: Yevgeniy Gao Total Time Spent: Greater than 30 minutes This includes examination of the patient, discharge planning, medication reconciliation, and communication with other providers. Discharge Instructions Please refer to the electronic Patient Visit Report (Discharge Instructions) for additional information. Additional Copies To Kenn Driver M.D.
== END 2017-03-30 14:17 | disposition home or self-care (01) | DRG 313 ==
LOC: C.EDA 14:18 → EDSEX 14:18 → EDBD 14:18 → C.2T 16:09 → ENRESERV 16:19
PROVIDERS: ADMIT Family Medicine; ATTEND Internal Medicine
DX: R07.9 Chest pain, unspecified (principal); E83.42 Hypomagnesemia; E83.51 Hypocalcemia; I08.0 Rheumatic disorders of both mitral and aortic valves; D63.8 Anemia in other chronic diseases classified elsewhere; R00.0 Tachycardia, unspecified; I49.1 Atrial premature depolarization; R06.02 Shortness of breath; I44.0 Atrioventricular block, first degree; I25.10 Atherosclerotic heart disease of native coronary artery without angina pectoris; I10 Essential (primary) hypertension; E03.9 Hypothyroidism, unspecified; M81.0 Age-related osteoporosis without current pathological fracture; Z66 Do not resuscitate; Z79.82 Long term (current) use of aspirin; Z79.810 Long term (current) use of selective estrogen receptor modulators (SERMs); Z79.899 Other long term (current) drug therapy

== ENCOUNTER → 2017-03-29 | Day surgery (SDC) | payer OTHER ==
[2017-03-21 11:02] VITALS: Ht 157.5 cm; Wt 56.8 kg
[~2017-03-29] VITALS: Ht 157.5 cm; Wt 56.8 kg
[~2017-03-29] MED LIST changes: -ASPI-320 PO; +ASPIRIN 81 MG CHEW PO ONE; -ATOR-22 PO; -CHOL1000 PO; -IBAN150T PO; -IBUP200C14; -IMDSR30 PO; +NITROGLYCERIN 0.3 MG/1 TAB 100 TAB BTL SL ONE; +NITROGLYCERIN 0.4 MG SL PER TAB CHARGE ONE; -OPTIRAY 320 IV PRN; -PSEU30TA20 PO; +SODIUM CHLORIDE 0.9% 500ML 500 ML IV ONE
[2017-03-29 11:13] VITALS: TEMP 36.9
--- NOTE | 2017-03-29 12:12 | Endo History and Physical ---
History & Physical Date of Service: Mar 29, 2017. Chief Complaint: Anemia, Rectal bleeding, wt loss Referring Physician: Kenn Driver History of Present Illness 86 yo CF who presents for colonoscopy secondary to anemia, rectal bleeding and weight loss. Past Medical History Osteoporosis, Arthritis, Thyroid Disease Past Surgical History Hx Cardiac Surgery: Yes (HEART CATH-NO STENTS) Hx Internal Defibrillator: No Hx Pacemaker: No Hx Abdominal Surgery: Yes (HYSTERECTOMY, GASTRIC BYPASS, D&E) Hx of Implantable Prosthesis: No Hx Post-Op Nausea and Vomiting: No Hx Cancer Surgery: Yes (BLADDER TUMOR REMOVED) Hx Thoracic Surgery: No Hx Orthopedic: No Hx Urinary Tract Surgery: Yes (BLADDER TACK) Family History None Social History Smoking Status: Never Smoker Hx Substance Use: No Hx Alcohol Use: No Allergies Coded Allergies: No Known Allergies (Unverified , 03/21/17) Current Medications Reported Home Medications Medications Dose Route/Sig Max Daily Dose Days Date Category Vitamin D3 (Cholecalciferol) 2,000 Unit Tab 1 Tab PO QAM 03/21/17 Reported Sudafed (Pseudoephedrine Hcl) 30 Mg Tab 30 Mg PO DAILY PRN 03/21/17 Reported Zoloft (Sertraline HCl) 25 Mg Tab 25 Mg PO QAM 03/21/17 Reported Levothyroxine Sodium 50 Mcg Tab 1 Tab PO QAM 03/21/17 Reported Isordil (Isosorbide Dinitrate) 30 Mg Tab 30 Mg PO QAM 03/21/17 Reported Lipitor (Atorvastatin) 20 Mg Tab 20 Mg PO QAM 03/21/17 Reported Aspirin Chewable (Aspirin) 81 Mg Chew 81 Mg PO QAM 03/21/17 Reported Micro-K Ext Rel (Potassium Chloride) 10 Meq Capcr 10 Meq PO QAM 01/13/17 Reported Lasix (Furosemide) 20 Mg Tab 1 Tab PO QAM 90 01/13/17 Reported Evista (Raloxifene Hcl) 60 Mg Tab 60 Mg PO QAM 01/16/15 Reported Vital Signs Weight (Kilograms): 56.82 Height (Feet): 5 Height (Inches): 2 Date Time Temp Pulse Resp B/P (MAP) Pulse Ox O2 Delivery O2 Flow Rate FiO2 03/29/17 11:13 36.9 75 24 146/61 (89) 96 Room Air Physical Exam General Appearance: WD/WN, no apparent distress Respiratory/Chest: Auscultation: breath sounds normal Cardiovascular: Heart Auscultation: RRR Abdomen: Bowel Sounds: normal Inspection & Palpation: soft, non-distended, no tenderness, guarding & rebound Assessment and Plan Assessment: 86 yo CF who presents for colonoscopy secondary to anemia, rectal bleeding and weight loss. Plan: Proceed with colonoscopy.
--- NOTE | 2017-03-29 12:48 | GI REPORT ---
Procedure Date: 03/29/2017 12:13 PM Procedure: Colonoscopy Indications: Rectal bleeding, Iron deficiency anemia, Weight loss Medicines: Monitored Anesthesia Care Complications: No immediate complications. Estimated Blood Loss: Estimated blood loss: none. Procedure: Pre-Anesthesia Assessment: - Prior to the procedure, a History and Physical was performed, and patient medications and allergies were reviewed. The patient's tolerance of previous anesthesia was also reviewed. The risks and benefits of the procedure and the sedation options and risks were discussed with the patient. All questions were answered, and informed consent was obtained. Prior Anticoagulants: The patient has taken aspirin, last dose was 1 day prior to procedure. ASA Grade Assessment: III - A patient with severe systemic disease. After reviewing the risks and benefits, the patient was deemed in satisfactory condition to undergo the procedure. After I obtained informed consent, the scope was passed under direct vision. Throughout the procedure, the patient's blood pressure, pulse, and oxygen saturations were monitored continuously. The scope was introduced through the anus and advanced to the terminal ileum. The colonoscopy was performed without difficulty. The patient tolerated the procedure well. The quality of the bowel preparation was good. The terminal ileum, ileocecal valve, appendiceal orifice, and rectum were photographed. Findings: The perianal and digital rectal examinations were normal. Multiple small-mouthed diverticula were found in the sigmoid colon. Non-bleeding external and internal hemorrhoids were found during retroflexion. The hemorrhoids were small. Impression: - Diverticulosis in the sigmoid colon. - Non-bleeding external and internal hemorrhoids. - No specimens collected. Recommendation: - Resume previous diet. - Continue present medications. - No repeat colonoscopy due to age and the absence of advanced adenomas. - Return to primary care physician as previously scheduled. Guille Francisco DO 03/29/2017 12:48:29 PM This report has been signed electronically. Note Initiated On: 03/29/2017 12:13 PM I attest to the content of the Intraoperative Record and orders documented therein, exceptions below
--- NOTE | 2017-03-29 12:50 | Discharge Instructions ---
Endoscopy Patient Instructions Date / Procedure(s) Performed Mar 29, 2017. Colonoscopy Allergy Information Coded Allergies: No Known Allergies (Unverified , 03/21/17) Discharge Date / Findings Mar 29, 2017. Diverticulosis Internal hemorrhoids External hemorrhoids Medication Instructions OK to resume all medications today as prescribed Reported Home Medications Medications Dose Route/Sig Max Daily Dose Days Date Category Vitamin D3 (Cholecalciferol) 2,000 Unit Tab 1 Tab PO QAM 03/21/17 Reported Sudafed (Pseudoephedrine Hcl) 30 Mg Tab 30 Mg PO DAILY PRN 03/21/17 Reported Zoloft (Sertraline HCl) 25 Mg Tab 25 Mg PO QAM 03/21/17 Reported Levothyroxine Sodium 50 Mcg Tab 1 Tab PO QAM 03/21/17 Reported Isordil (Isosorbide Dinitrate) 30 Mg Tab 30 Mg PO QAM 03/21/17 Reported Lipitor (Atorvastatin) 20 Mg Tab 20 Mg PO QAM 03/21/17 Reported Aspirin Chewable (Aspirin) 81 Mg Chew 81 Mg PO QAM 03/21/17 Reported Micro-K Ext Rel (Potassium Chloride) 10 Meq Capcr 10 Meq PO QAM 01/13/17 Reported Lasix (Furosemide) 20 Mg Tab 1 Tab PO QAM 90 01/13/17 Reported Evista (Raloxifene Hcl) 60 Mg Tab 60 Mg PO QAM 01/16/15 Reported Provider Instructions Activity Restrictions - No exercising or heavy lifting for 24 hours. - Do not drink alcohol the day of the procedure. - Do not drive a car or operate machinery until the day after the procedure. - Do not make any important decisions or sign important papers in 24 hours after the procedure. Following Day: - Return to full activity which may include returning to work/school. Diet Start your diet with liquids and light foods (jello, soup, juice, toast). Then eat your usual diet if not nauseated. Treatment For Common After Affects For mild abdominal pain, bloating, or excessive gas: - Rest - Eat lightly - Lie on right side Follow-Up Information Follow-up with Kenn Driver as scheduled Anesthesia Information What You Should Know You have had a procedure that required some medicine to reduce anxiety and discomfort. This treatment is called moderate sedation. After receiving the treatment, you may be sleepy, but you will be able to breathe on your own. The effects of the treatment may last for several hours. Follow these instructions along with Activity/Diet recommendations noted above: * Do NOT do anything where dizziness or clumsiness would be dangerous. * Rest quietly at home today, then you can be up and about tomorrow. * Have a responsible person stay with you the rest of today. * You may have had an I.V. today. If so, you may take the dressing off later today. Recommendations Call your doctor if: * Trouble breathing * Continuous vomiting for more than 24 hours * Temperature above 101 degrees * Severe abdominal pain or bloating * Pain not relieved by pain medicine ordered * There is increased drainage or redness from any incision * A large amount of rectal bleeding greater than 2-3 tablespoons. (If you had a polyp/s removed or have hemorrhoids, a small amount of blood - from the rectum is to be expected.) * You have any unanswered questions or concerns. IN THE EVENT OF A SERIOUS EMERGENCY, GO TO THE NEAREST EMERGENCY ROOM Your discharge instructions were prepared by provider Guille Francisco. Patient Instructions Signature Page Ericka Adams Patient (or Guardian) Signature/Date: I have read and understand the instructions given to me by my caregivers. Caregiver/RN/Doctor Signature/Date: The above-named patient and/or guardian has received patient instructions on this date. + Original Patient Signature Page (only) stays with chart. Please make copy for patient.
[2017-03-29 14:10] VITALS: BP 133/52; PULSE 69; O2SAT 100
[2017-03-29 14:14] LABS: HEMATOCRIT 28.8 % (37-47); HEMOGLOBIN 9.2 g/dL (12.0-16.0); MEAN CELL VOLUME 93.2 fL (80-100); MEAN CORPUSCULAR HEMOGLOBIN 29.8 pg (25-34); MEAN PLATELET VOLUME 8.1 fL (7.4-10.4); PLATELET COUNT 296 K/uL (130-400); RED CELL DISTRIBUTION WIDTH CV 13.7 % (11.5-14.5); RED CELL DISTRIBUTION WIDTH SD 46.8 fL (36.4-46.3); WHITE BLOOD COUNT 7.25 K/uL (4.8-10.8)
[2017-03-29 14:18] LABS: MEAN CORPUSCULAR HGB CONC 31.9 g/dl (32-36)
--- NOTE | 2017-03-29 14:18 | Anesthesiology Progress Note ---
Anesthesia Post Op Note Date & Time Mar 29, 2017 at 14:17 Vital Signs Pain Intensity: 0 Vital Signs Past 12 Hours Date Time Temp Pulse Resp B/P (MAP) Pulse Ox O2 Delivery O2 Flow Rate FiO2 03/29/17 13:59 66 16 127/56 (79) 100 Nasal Cannula 4 03/29/17 13:55 68 16 99/60 (73) 100 Nasal Cannula 4 03/29/17 13:48 68 16 143/56 (85) 100 Nasal Cannula 4 03/29/17 13:44 66 16 144/56 (85) 100 Nasal Cannula 4 03/29/17 13:29 70 16 150/56 (87) 100 Nasal Cannula 4 03/29/17 13:13 68 16 116/60 (78) 97 Room Air 03/29/17 12:58 66 16 129/49 (75) 100 Room Air 03/29/17 12:43 66 16 108/49 (68) 100 Room Air 03/29/17 11:13 36.9 75 24 146/61 (89) 96 Room Air Notes Mental Status: alert / awake / arousable, participated in evaluation Pt Amnestic to Procedure: Yes Nausea / Vomiting: adequately controlled Pain: adequately controlled Airway Patency, RR, SpO2: stable & adequate BP & HR: stable & adequate Hydration State: stable & adequate Anesthetic Complications: patient with chest pressure in recovery, please see separate anesthesia note.
--- NOTE | 2017-03-29 14:30 | Anesthesiology Progress Note ---
Anesthesia Progress Note Date of Service Mar 29, 2017. Progress Notes Ms. Ericka Adams was seen today for colonoscopy with Dr. Francisco with the [facility]. 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 Her intraoperative course proceeded without complication, although she did receive a few doses of phenylephrine during the case to maintain appropriate hemodynamics. In recovery, the patient was complaining of chest pressure when she awoke. Heart rate was in the 60s and irregular on telemetry and blood pressure was around 150s systolic. Hemodynamics remained stable throughout her time in PACU. Patient was given 324 mg of chewable ASA and started on oxygen 4 LPM NC. Patient reported some relief after starting on oxygen. STAT EKG was notable for sinus arrhythmia with first degree heart block, but no evidence of acute ischemia. The patient was given SL nitro without improvement in chest pressure. Troponin, CBC, and BMP were ordered STAT. The patient was transferred to the ED for continued management of possible perioperative cardiac event. Nursing and physician to physician report called to the ED. Nayeli Kilgore MD, PhD Anesthesiology
[2017-03-29 14:48] LABS: BLOOD UREA NITROGEN 13 mg/dl (7-18); CALCIUM 8.1 mg/dl (8.5-10.1); CARBON DIOXIDE 27 mmol/L (21-32); CREATININE 0.65 mg/dl (0.60-1.20); GLUCOSE 90 mg/dl (70-99); POTASSIUM 3.7 mmol/L (3.5-5.1); SODIUM 141 mmol/L (136-145)
== END | disposition home or self-care (01) ==
LOC: C.GI 10:10
PROVIDERS: ATTEND Internal Medicine
DX: K62.5 Hemorrhage of anus and rectum (principal); D50.9 Iron deficiency anemia, unspecified; R63.4 Abnormal weight loss; K57.30 Diverticulosis of large intestine without perforation or abscess without bleeding; K64.4 Residual hemorrhoidal skin tags; K64.8 Other hemorrhoids; I25.10 Atherosclerotic heart disease of native coronary artery without angina pectoris; I10 Essential (primary) hypertension; Z85.51 Personal history of malignant neoplasm of bladder; Z90.710 Acquired absence of both cervix and uterus; Z98.84 Bariatric surgery status; Z98.890 Other specified postprocedural states; Z79.82 Long term (current) use of aspirin; Z98.41 Cataract extraction status, right eye; Z98.42 Cataract extraction status, left eye

== ENCOUNTER → 2017-07-11 | Outpatient (CLI) | payer OTHER ==
[2017-07-11 16:49] LABS: ALBUMIN 3.6 gm/dl (3.4-5.0); ALT/SGPT 15 U/L (12-78); AST/SGOT 18 U/L (15-37); BLOOD UREA NITROGEN 19 mg/dl (7-18); CALCIUM 8.3 mg/dl (8.5-10.1); CARBON DIOXIDE 22 mmol/L (21-32); CREATININE 0.85 mg/dl (0.60-1.20); GLUCOSE 85 mg/dl (70-99); SODIUM 142 mmol/L (136-145)
[2017-07-11 16:55] LABS: BASO % 0.5 %; BASO ABS # 0.03 K/uL (0-0.2); EOS % 2.2 %; EOS ABS # 0.14 K/uL (0-0.5); HEMATOCRIT 32.7 % (37-47); HEMOGLOBIN 10.5 g/dL (12.0-16.0); IG# 0.02 K/uL (0.00-0.02); LYMPH % 23.8 %; MEAN CELL VOLUME 93.7 fL (80-100); MEAN CORPUSCULAR HEMOGLOBIN 30.1 pg (25-34); MEAN CORPUSCULAR HGB CONC 32.1 g/dl (32-36); MONO % 7.3 %; MONO ABS # 0.46 K/uL (0.11-0.59); NEUT % 65.9 %; NEUT ABS # 4.16 K/uL (1.4-6.5); PLATELET COUNT 307 K/uL (130-400); RED CELL DISTRIBUTION WIDTH CV 14.2 % (11.5-14.5); RED CELL DISTRIBUTION WIDTH SD 48.2 fL (36.4-46.3); RETIC COUNT % 1.1 % (0.5-2.0); WHITE BLOOD COUNT 6.31 K/uL (4.8-10.8)
[2017-07-11 17:00] LABS: ALKALINE PHOSPHATASE 47 U/L (45-117); TOTAL PROTEIN 6.6 gm/dl (6.4-8.2)
== END | disposition home or self-care (01) ==
LOC: C.LABBFT 11:17
PROVIDERS: ATTEND Family Medicine
DX: R53.83 Other fatigue (principal); E03.9 Hypothyroidism, unspecified; I50.9 Heart failure, unspecified; E55.9 Vitamin D deficiency, unspecified; E83.42 Hypomagnesemia; D51.8 Other vitamin B12 deficiency anemias